=== PATIENT | female | born 1945 | race Caucasian/White ===

== ENCOUNTER 2018-05-03 10:57 | Outpatient (CLI) | payer MEDICARE ==
--- NOTE | 2018-05-03 12:22 | MRI ---
MRI LUMBAR SPINE: Date: 05/03/18 PROVIDED CLINICAL HISTORY: Lumbar radiculopathy. FINDINGS: No comparisons. Five lumbar vertebral bodies are assumed. There is Grade I anterolisthesis of L4 on L5. Lumbar alignm ent appears otherwise normal. Vertebral body heights appear preserved. No focal concerning regional m arrow signal abnormality is evident. The visualized extraspinal soft tissues appear unremarkable. At T11-12, there is a left paracentral disc herniation which effaces the left ventral lateral thecal sac and approximates the ventral aspects of the conus medullaris. At T12-L1, there is no significant central canal or foraminal narrowing apparent. At L1-L2, there is no significant central canal or foraminal narrowing apparent. At L2-L3, there is a broad based disc bulge and bilateral facet arthritis. There is superimposed broa d left foraminal disc protrusion. There is mild left foraminal narrowing. Mild central canal stenosis . No significant right foraminal narrowing. At L3-4, there is a broad based disc bulge and bilateral facet arthritis. There is mild-moderate cent ral canal stenosis. There is bilateral moderate foraminal narrowing. At L4-5, there is a broad based pseudobulge and bilateral facet arthritis. There is extremely severe central canal stenosis. There is moderate bilateral foraminal narrowing. At L5-S1, there is bilateral facet arthritis and disc space height loss and end plate degenerative ch damon with a broad based disc bulge. There is no significant central canal stenosis apparent. There is moderate bilateral foraminal narrowing. IMPRESSION: Thoracic and lumbar degenerative changes, producing areas of canal and foraminal narrowing as describ ed above. POS: JIMMY
== END 2018-05-03 10:58 | disposition home or self-care (01) ==
LOC: TBSIIMAG 10:57
PROVIDERS: ATTEND Neurological Surgery
DX: M47.26 Other spondylosis with radiculopathy, lumbar region (principal); M47.814 Spondylosis without myelopathy or radiculopathy, thoracic region; M48.061 Spinal stenosis, lumbar region without neurogenic claudication; M48.07 Spinal stenosis, lumbosacral region
CPT/HCPCS: 72148

== ENCOUNTER 2018-07-05 13:19 | Emergency (ER) | payer MEDICARE ==
[2018-07-05] MEDS ORDERED: Methocarbamol 500 MG TAB PO SCH (13:45)
== END 2018-07-05 16:06 | disposition home or self-care (01) ==
LOC: ERS 13:19
DX: G89.29 Other chronic pain (principal); M54.5 Low back pain; Z79.899 Other long term (current) drug therapy
CPT/HCPCS: 51798

== ENCOUNTER 2018-07-23 00:17 | Outpatient (CLI) | payer MEDICARE ==
[2018-07-23 14:55] LABS: Hemoglobin 11.6 g/dL (12.0-16.0); Mean Corpuscular HGB CONC 32.8 g/dL (32.0-36.0); Mean Corpuscular Hemoglobin 28.9 pg (27.0-31.0); Mean Corpuscular Volume 88.3 fL (78.0-98.0); Mean Platelet Volume 7.9 fL (7.4-10.4); Platelet Count 202 thou/uL (130-400); RBC Distribution Width 11.5 % (11.5-14.5); Red Blood Cell (RBC) Count 4.01 mill/uL (4.20-5.40); White Blood Cell (WBC) Count 4.6 thou/uL (4.8-10.8)
[2018-07-23 15:24] LABS: Anion Gap 12 mmol/L (10-20); BUN (Urea Nitrogen) 25 mg/dL (9.8-20.1); Calc. Creatinine Clearance 0 mL/min (70-130); Calcium 9.8 mg/dL (7.8-10.44); Carbon Dioxide 28 mmol/L (23-31); Chloride 103 mmol/L (98-107); Estimated GFR-MDRD 66; Glucose 95 mg/dL (83-110); Potassium 3.9 mmol/L (3.5-5.1); Sodium 139 mmol/L (136-145)
--- NOTE | 2018-07-24 23:03 | EKG ---
Test Reason : Blood Pressure : / mmHG Vent. Rate : 060 BPM Atrial Rate : 060 BPM P-R Int : 128 ms QRS Dur : 082 ms QT Int : 448 ms P-R-T Axes : 070 066 064 degrees QTc Int : 448 ms Normal sinus rhythm Low voltage QRS RSR' or QR pattern in V1 suggests right ventricular conduction delay Borderline ECG No previous ECGs available Confirmed by ELIJAH MALONEY ([id number]) on 07/24/2018 11:02:58 PM Referred By: ROSALINDA Confirmed By:ELIJAH MALONEY
== END 2018-07-23 00:18 | disposition home or self-care (01) ==
LOC: LABBT 00:17
PROVIDERS: ATTEND Neurological Surgery
DX: Z01.818 Encounter for other preprocedural examination (principal); M43.16 Spondylolisthesis, lumbar region
CPT/HCPCS: 80048; 85027; 93005; 93010

== ENCOUNTER 2018-07-23 13:30 | Inpatient (IN) | payer MEDICARE ==
[2018-07-23 13:48] VITALS: BMI 20.2
[2018-07-25] MEDS ORDERED: Sodium Chloride 0.9% 10 ML ONE (06:33)
[2018-07-25] MEDS ORDERED: Midazolam HCl 2 mg/2 ml Vial ONE (07:05)
[2018-07-25] MEDS ORDERED: Fentanyl 100 MCG/2 ML VIAL ONE ×5 (07:09→10:03)
[2018-07-25] MEDS ORDERED: Meperidine HCl/PF 25 MG/ML VIAL SLOW IVP PRN (09:08)
[2018-07-25] MEDS ORDERED: Promethazine HCl 25 MG/ML VIAL IM PRN ×2 (09:08→13:48)
[2018-07-25] MEDS ORDERED: Ketorolac Tromethamine 30 MG/ML VIAL IVP PRN (09:08)
[2018-07-25] MEDS ORDERED: Ondansetron HCl/PF 4 MG/2 ML Vial IVP PRN (09:08)
[2018-07-25] MEDS ORDERED: Promethazine HCl 25 MG/ML VIAL SLOW IVP PRN (09:08)
--- NOTE | 2018-07-25 10:37 | OP ---
DATE OF PROCEDURE: 07/25/2018 COMPUTER PROJECT MANAGER: Missy Kee PA-C PROCEDURES PERFORMED: L4-L5 decompressive laminectomy, posterolateral arthrodesis, pedicle screw instrumentation L4-L5, local morselized autograft, demineralized bone matrix. DESCRIPTION OF PROCEDURE: The patient brought to the operating room and intubated. She was rolled in the prone position on gel-filled chest rolls. An incision was made exposing L4 and L5 bilaterally and the level was confirmed by x-ray. We performed complete L5 and inferior L4 laminectomies, completely decompressing the neural elements. We placed pedicle screws bilaterally at L4 and L5 using lateral fluoroscopic guidance and the positioning was confirmed with rotational x-ray. The bones were noted to be quite soft. The pawan was secured between the screws, connected by nuts, which were final tightened. The wound was extensively irrigated and maximum hemostasis was secured. A combination of demineralized bone matrix and local morselized autograft was laid over the lamina and posterolateral surfaces for the purpose of arthrodesis. Vancomycin powder was applied and the wound was then closed in anatomic layers. Job ID: [id number]
[2018-07-25] MEDS ORDERED: HYDROmorphone 2 MG/ML VIAL ONE (10:42)
[2018-07-25] MEDS ORDERED: diphenhydrAMINE 50 MG/ML VIAL IVP PRN (13:48)
[2018-07-25] MEDS ORDERED: Mag-Al 1200 mg/1200 mg/30 ML UDCUP PO PRN (13:48)
[2018-07-25] MEDS ORDERED: Morphine 4 MG/ML VIAL SLOW IVP PRN ×2 (13:48→14:00)
[2018-07-25] MEDS ORDERED: HYDROcodone/Acetaminophen 10/325 mg Tablet PO PRN ×2 (13:48)
[2018-07-25] MEDS ORDERED: Promethazine 25 MG TAB PO PRN (13:48)
[2018-07-25] MEDS ORDERED: Promethazine HCl 12.5 MG SUPP PR PRN (13:48)
[2018-07-25] MEDS ORDERED: traMADol HCl 50 MG TAB PO PRN ×2 (13:48)
[2018-07-25] MEDS ORDERED: Milk Of Magnesia 30 ML UDCUP PO PRN (13:48)
[2018-07-25] MEDS ORDERED: diphenhydrAMINE 25 MG CAP PO PRN (13:48)
[2018-07-25] MEDS ORDERED: Ondansetron PF 4 MG/2 ML Vial SLOW IVP PRN (13:50)
[2018-07-25] MEDS: CEFAZOLIN 2 GM in Premix Bag 1 BAG IVPB SCH ×2 (14:26→20:23)
[2018-07-25] MEDS: tiZANidine HCl 4 MG TAB PO PRN (14:27)
[2018-07-25] MEDS: Sodium Chloride 0.9% 1,000 ML IV SCH (14:27)
[2018-07-25] MEDS ORDERED: PHENYLEPHRINE-NS 100 MCG/ML 10 ML SYRINGE ONE (15:57)
[2018-07-25] MEDS ORDERED: Ondansetron PF 4 MG/2 ML Vial ONE (15:57)
[2018-07-25] MEDS ORDERED: Glycopyrrolate 0.2 MG/ML 5 ML SYRINGE ONE (15:57)
[2018-07-25] MEDS ORDERED: PROPOFOL 200 MG/20 ML VIAL ONE (15:57)
[2018-07-25] MEDS ORDERED: Rocuronium Bromide 10 MG/ML (10ML VIAL) ONE (15:57)
[2018-07-25] MEDS ORDERED: Dexamethasone 20 MG/5 ML VIAL ONE (15:57)
[2018-07-25] MEDS ORDERED: Lidocaine 1% PF 5 ML VIAL ONE (15:57)
[2018-07-26] MEDS: Sodium Chloride 0.9% 1,000 ML IV SCH ×2 (02:24→05:18)
[2018-07-26] MEDS: tiZANidine HCl 4 MG TAB PO PRN (07:57)
--- NOTE | 2018-07-26 13:47 | DIS ---
DATE OF ADMISSION: 07/25/2018 DATE OF DISCHARGE: 07/26/2018 HOSPITAL COURSE: The patient is a 73-year-old female in our office recently for L4-L5 spondylolisthesis with stenosis and symptoms of neurogenic claudication. She underwent L4-L5 decompression and fusion on 07/25/2018. Following the surgery, she was transitioned to the Med/Surg floor, where her pain has been well-controlled with p.o. medications. She has been tolerating a regular diet, and she is voiding appropriately. She has been up ambulating throughout the department without any difficulty. She is complaining of some slight numbness and tingling in the right L5 pattern, but there is no focal weakness on her exam. On her exam this morning, she is awake, alert, sitting up comfortable, in no acute distress. She has free active range of motion of all extremities. No focal motor weakness or reflex asymmetry. She has negative straight leg raise. Her incision is dry and intact. We will plan to dismiss the patient home. I have discussed home care and precautions. She has been provided with scripts for hydrocodone, Colton, and Keflex. Will follow up in 2 weeks. Job ID: [id number]
[2018-07-26 14:56] VITALS: BP 130/67; TEMP 98.8
== END 2018-07-26 14:30 | disposition home or self-care (01) | DRG 460 ==
LOC: SURG A 07-25 05:59 → T4-B 07-25 11:33
PROVIDERS: ADMIT Neurological Surgery; ATTEND Neurological Surgery
PROC: 0SG0071 Fusion of Lumbar Vertebral Joint with Autologous Tissue Substitute, Posterior Approach, Posterior Column, Open Approach (ICD-10-PCS; principal; 2018-07-25)
DX: M43.16 Spondylolisthesis, lumbar region (principal); M48.062 Spinal stenosis, lumbar region with neurogenic claudication; Z88.2 Allergy status to sulfonamides; Z79.1 Long term (current) use of non-steroidal anti-inflammatories (NSAID)
CPT/HCPCS: 76000; C1713; C1768; J0131; J0690; J1100; J1170; J2001; J2250; J2270; J2405; J2704; J3010; J3370; J3490

== ENCOUNTER 2018-08-09 15:33 | Outpatient (CLI) | payer MEDICARE ==
--- NOTE | 2018-08-09 15:56 | RAD ---
LUMBAR SPINE TWO VIEWS: 08/09/18 HISTORY: Spondylolisthesis at L4=L5. Status post recent laminectomy and pedicle screw placement changes at L4-L5 with 1 cm of anterolisthe sis. Heterogeneous bone demineralization. Multilevel disc osteophytosis. IMPRESSION: Postoperative changes with 1 cm of anterolisthesis of L4 on L5. POS: C
== END 2018-08-09 15:34 | disposition home or self-care (01) ==
LOC: TBSIIMAG 15:33
PROVIDERS: ATTEND Neurological Surgery
DX: M43.16 Spondylolisthesis, lumbar region (principal); Z98.890 Other specified postprocedural states
CPT/HCPCS: 72100

== ENCOUNTER 2018-09-18 13:26 | Outpatient (CLI) | payer MEDICARE ==
--- NOTE | 2018-09-18 13:48 | RAD ---
LUMBAR SPINE TWO VIEWS: HISTORY: Lumbar spondylolisthesis. COMPARISON: 08/09/2008 TECHNIQUE: AP and lateral views of the lumbar spine obtained. FINDINGS: The patient has had L4 and L5 pedicle hardware placement. The patient has had previous laminectomies involving L4 and L5. Anterolisthesis, grade 2, is seen of L4 and L5, measuring approximately 11.7 mm. IMPRESSION: Approximately 12 mm of anterolisthesis of L4 on L5. Transcribed Date/Time: 09/18/2018 2:53 PM
== END 2018-09-18 13:27 | disposition home or self-care (01) ==
LOC: TBSIIMAG 13:26
PROVIDERS: ATTEND Neurological Surgery
DX: M43.16 Spondylolisthesis, lumbar region (principal)
CPT/HCPCS: 72100

== ENCOUNTER 2020-03-03 12:39 | Outpatient (CLI) | payer MEDICARE ==
--- NOTE | 2020-03-03 13:45 | RAD ---
LUMBAR SPINE: 03/03/20 Two views. HISTORY: Low back pain. COMPARISON: 09/18/18. Pedicle screws again noted at L4-5. Anterolisthesis seen at L4-5 appears stable. Loss of disc space a t L5-S1 is unchanged. Vertebral bodies maintain height and alignment and is otherwise unchanged from the prior exam. IMPRESSION: Stable findings. POS: AGW
== END 2020-03-03 12:40 | disposition home or self-care (01) ==
LOC: TBSIIMAG 12:39
PROVIDERS: ATTEND Neurological Surgery
DX: M54.5 Low back pain (principal)
CPT/HCPCS: 72100